=== PATIENT | male | born 1985 | race Caucasian/White ===

== ENCOUNTER 2018-02-04 11:18 | Emergency (ER) | payer BC, MEDICAID, OTHER ==
[~2018-02-04] VITALS: Ht 180.3 cm; Wt 103.1 kg
[2018-02-04 11:26] VITALS: BP 149/90
[2018-02-04] MEDS ORDERED: HYDROcodone/APAP 5/325 TABLET PO ONE (12:00)
[2018-02-04] MEDS ORDERED: IBUPROFEN 200 MG TABLET PO ONE (12:00)
[2018-02-04] MEDS ORDERED: IBUPROFEN 200 MG TABLET ONE (12:05)
[2018-02-04] MEDS ORDERED: HYDROcodone/APAP 5/325 TABLET ONE (12:06)
[2018-02-04 12:27] LABS: MICROSCOPIC AUTO
[2018-02-04 12:28] LABS: CULTURE INDICATED? YES
[2018-02-04] MEDS ORDERED: CEFTRIAXONE PMX 1GM/50ML 50 ML IV ONE (13:00)
[2018-02-04] MEDS ORDERED: CEFTRIAXONE 250 MG IM ONE (13:00)
[2018-02-04] MEDS ORDERED: CEFTRIAXONE 250 MG ONE (13:10)
== END 2018-02-04 13:39 | disposition home or self-care (01) ==
LOC: ED 12:19
DX: N45.1 Epididymitis (principal); A56.01 Chlamydial cystitis and urethritis; A54.9 Gonococcal infection, unspecified
CPT/HCPCS: 76870; 81001; 87077; 87086; 87186; 87491; 87591; 93975; 96372; 99284; J0696